=== PATIENT | female | born 1970 | race Asian ===

== ENCOUNTER 2021-03-08 16:38 | Emergency (ER) | payer MEDICAID, OTHER ==
[~2021-03-08] VITALS: Ht 157.5 cm; Wt 69.0 kg
[2021-03-08] MEDS ORDERED: AMLODIPINE 5MG TABLET PO ONE (19:30)
[2021-03-08 19:38] LABS: BASOPHILS % 0.5 % (0.0-2.0); EOSINOPHILS % 3.3 % (0.0-5.0); HEMATOCRIT. 38.7 % (36.0-48.0); HEMOGLOBIN. 13.4 g/dL (12.0-16.0); LYMPHOCYTES % 36.7 % (20.0-50.0); MEAN CORPUSCULAR HEMOGLOBIN 32.1 pg (28.0-32.0); MEAN CORPUSCULAR VOLUME 92.8 fL (81.0-99.0); MEAN PLATELET VOLUME 8.5 fl (7.4-10.4); MONOCYTES % 5.5 % (2.0-8.0); PLATELET 218 x1000/uL (130-400); RED BLOOD CELL COUNT 4.17 mill/uL (4.2-5.4); RED CELL DISTRIBUTION WIDTH 13.1 % (11.6-14.6)
[2021-03-08 19:42] LABS: CHLORIDE 108 mEq/L (98-107)
[2021-03-08] MEDS ORDERED: AMLO2.5T2 MT (20:36)
[2021-03-08 20:45] VITALS: BP 151/92
== END 2021-03-08 20:45 | disposition home or self-care (01) ==
LOC: ER 16:38
DX: I16.0 Hypertensive urgency (principal); E11.9 Type 2 diabetes mellitus without complications; Z90.49 Acquired absence of other specified parts of digestive tract; Z98.890 Other specified postprocedural states
CPT/HCPCS: 36415; 80053; 85025; 93005; 99284; Z7610